=== PATIENT | male | born 1940 | race Caucasian/White ===

== ENCOUNTER 2017-02-28 06:51 | Day surgery (SDC) | payer MEDICARE, BC ==
[2017-02-23 23:09] VITALS: BMI 24.3
[~2017-02-28 06:51] MED LIST: LACTATED RINGERS 1,000 ML IV SCH; LIDOCAINE 1% 20 ML VIAL (10MG/ML) FOR IV START INTRADERMA PRN
[2017-02-28 07:07] VITALS: RESP 16; TEMP 98
[2017-02-28 07:19] LABS: Glucose,Whole Blood 172 mg/dL (75-99)
[2017-02-28] MEDS ORDERED: PROPOFOL 10 MG/ML 20 ML VIAL IV ONE (07:57)
--- NOTE | 2017-02-28 08:19 | P.OP ---
Date of Procedure: 02/28/17 Preoperative Diagnosis: Screening colonoscopy Postoperative Diagnosis: Diverticulosis Sigmoid colon polyp Procedure(s) Performed: Colonoscopy Anesthesia: MAC Surgeon: Dada Mcgowan Pathology: other (Sigmoid colon polyp) Condition: stable Disposition: PACU Description of Procedure: The patient's placed on the endoscopy table in the lateral position. He received IV sedation. Digital rectal exam was performed which revealed no abnormalities. The prostate was symmetrical without nodules. The flexible colonoscope was then placed patient anus passed throughout the entire colon. The ileocecal valve was visualized. The cecum, ascending and transverse colon appeared normal. The descending and sigmoid colon there was moderate diverticular changes. In the sigmoid colon there is there was a polyp seen in this is removed with the cold forcep. Scope was then withdrawn remainder the rectum appeared normal. Scope was withdrawn for patient.
--- NOTE | 2017-02-28 08:20 | P.GSHP ---
History of Present Illness H&P Date: 02/28/17 Chief Complaint: Screening colonoscopy This is a 76-year-old male referred from Dr. Arvizu. Patient resents today for screening colonoscopy. His last colonoscopy was over 5 years ago. Patient history of colon polyps. Past Medical History Past Medical History: Diabetes Mellitus, Hyperlipidemia, Hypertension Additional Past Medical History / Comment(s): hx. colon polyps History of Any Multi-Drug Resistant Organisms: None Reported Past Surgical History: Adenoidectomy, Tonsillectomy Additional Past Surgical History / Comment(s): colonoscopies, eye surg. as child Past Anesthesia/Blood Transfusion Reactions: No Reported Reaction Smoking Status: Former smoker - Past Family History Mother Family Medical History: Cancer Brother(s) Family Medical History: Deep Vein Thrombosis (DVT), Pulmonary Embolus Medications and Allergies Home Medications Medication Instructions Recorded Confirmed Type Aspirin [Adult Low Dose Aspirin EC] 81 mg PO DAILY 12/17/15 02/28/17 History Fish Oil/Dha/Epa [Fish Oil 1,200 1 each PO DAILY 12/17/15 02/28/17 History mg Fish Oil] Hydrochlorothiazide 12.5 mg PO DAILY 12/17/15 02/28/17 History Losartan [Cozaar] 50 mg PO DAILY 12/17/15 02/28/17 History Multivitamin [Men's Multi-Vitamin] 1 tab PO DAILY 12/17/15 02/28/17 History Atorvastatin [Lipitor] 10 mg PO HS 02/23/17 02/28/17 History Black Echevarria 1 tab PO DAILY 02/23/17 History metFORMIN HCL [Glucophage] 500 mg PO BID 02/23/17 02/28/17 History Allergies Allergy/AdvReac Type Severity Reaction Status Date / Time No Known Allergies Allergy Verified 02/22/17 16:02 Surgical - Exam Vital Signs Temp Pulse Resp BP Pulse Ox 98.0 F 98 16 161/77 96 02/28/17 07:03 02/28/17 07:03 02/28/17 07:03 02/28/17 07:03 02/28/17 07:03 - General well developed, no distress - Eyes PERRL - ENT normal pinna - Neck no masses - Respiratory normal expansion - Cardiovascular Rhythm: regular - Abdomen Abdomen: soft, non tender Results - Labs Abnormal Lab Results - Last 24 Hours (Table) 02/28/17 Range/Units 07:13 POC Glucose (mg/dL) 172 H (75-99) mg/dL Assessment and Plan Assessment: We'll perform screening colonoscopy.
[2017-02-28 08:42] VITALS: BP 149/65; PULSE 80
== END 2017-02-28 09:00 | disposition home or self-care (01) ==
LOC: ORWHC2ENDO 06:51 → EDSTATUS 09:00
PROVIDERS: ATTEND Surgery
DX: Z12.11 Encounter for screening for malignant neoplasm of colon (principal); K63.5 Polyp of colon; K57.30 Diverticulosis of large intestine without perforation or abscess without bleeding; I10 Essential (primary) hypertension; E78.5 Hyperlipidemia, unspecified; E11.9 Type 2 diabetes mellitus without complications; Z86.010 Personal history of colon polyps; Z79.84 Long term (current) use of oral hypoglycemic drugs; Z79.82 Long term (current) use of aspirin; Z79.899 Other long term (current) drug therapy; Z87.891 Personal history of nicotine dependence
CPT/HCPCS: 45380; 88305; J2704

== ENCOUNTER 2020-10-24 05:41 | Inpatient (IN) | payer MEDICARE, BC ==
[2020-10-22 08:41] VITALS: BMI 24.3
[2020-10-24] MEDS ORDERED: ALPRAZolam 0.5 MG TAB PO PRN (06:03)
[2020-10-24] MEDS ORDERED: ALPRAZolam 0.25 MG TAB PO PRN (06:03)
[2020-10-24] MEDS ORDERED: ZOLPIDEM 5 MG TAB PO PRN (06:03)
[2020-10-24] MEDS ORDERED: ceFAZolin 1 GM in SODIUM CHLORIDE 0.9% 250 ML IRRIGATION PRN (06:03)
[2020-10-24] MEDS ORDERED: SODIUM CHLORIDE 0.9% 1,000 ML in EMPTY BAG 1 BAG IV ONE (06:03)
[2020-10-24 06:40] LABS: Glucose,Whole Blood 150 mg/dL (75-99)
[2020-10-24] MEDS ORDERED: LIDOCAINE 1% INJ 10MG/ML (20 ML MDV) ONE ×4 (07:04→07:49)
[2020-10-24] MEDS ORDERED: METOPROLOL TARTRATE 12.5 MG TAB PO STA (07:25)
[2020-10-24] MEDS ORDERED: ROCURONIUM 10 MG/ML (5 ML VIAL) IV ONE (07:49)
[2020-10-24] MEDS ORDERED: HYDROmorphone (PF) 1 MG/ML ONE (07:49)
[2020-10-24] MEDS ORDERED: SUCCINYLCHOLINE CHLORIDE 100 MG/5 ML SYR IV ONE (07:49)
[2020-10-24] MEDS ORDERED: ePHEDrine SULFATE/0.9% NACL/PF 50 MG/5 ML SYRINGE IV ONE (07:49)
[2020-10-24] MEDS ORDERED: SODIUM CHLORIDE 0.9% 100 ML BAG ONE (07:49)
[2020-10-24] MEDS ORDERED: fentaNYL (PF) 50 MCG/ML 2 ML AMP ONE (07:49)
[2020-10-24] MEDS ORDERED: ceFAZolin 1,000 MG VIAL ONE (07:49)
[2020-10-24] MEDS ORDERED: HEPARIN SODIUM,PORCINE 10,000 UNIT/ML 1 ML VIAL ONE (07:49)
[2020-10-24] MEDS ORDERED: MIDAZOLAM 2 MG/2 ML VIAL ONE (07:49)
[2020-10-24] MEDS ORDERED: PROPOFOL 10 MG/ML 20 ML VIAL IV ONE (07:49)
[2020-10-24] MEDS ORDERED: IOPAMIDOL-250 100ML BTL INTRAARTER ONE ×2 (10:09→10:10)
[2020-10-24] MEDS ORDERED: HYDROcodone/APAP 5-325MG 1 EACH TAB PO PRN (10:21)
--- NOTE | 2020-10-24 10:32 | P.OP ---
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 Percutaneous Endovascular aortic repair with [place] device. 2. Ultrasound-guided bilateral common femoral artery access Surgeon: Oneil MARTE Anesthesia: General Estimated blood loss: 35 mL Complications: None Condition: Stable Disposition: Palpable DP and PT pulses bilaterally Indications: 80-year-old gentleman presented to the office secondary to large 7.8 cm infrarenal AAA just above the bifurcation seen on computed tomography scan. He presents today for endovascular aortic repair after medical and cardiac clearance. Operative narrative: After written and informed consent was obtained from the patient all risks benefits and complications were described the patient was brought to the [facility] [employer] [facility] and laid in a supine position. The area of the groins were prepped and draped in usual sterile fashion after appropriate anesthetic was performed per the anesthesiologist. A timeout was performed in normal fashion and antibiotics were administered prior to incisions. Utilizing ultras ound bilateral common femoral arteries were visualized demonstrating patency with minimal calcification. Under ultrasound guidance utilizing a multipurpose needle bilateral common femoral arteries were accessed and guidewire was placed followed by deployment of 2 Perclose closure devices for each femoral artery. Utilizing Seldinger technique and 8-Barbadian sheath was then placed and patient was administered heparin and followed with ACTs. 035 Glidewire was then placed up the right femoral sheath and exchanged for a Lunderquist wire through an angled glide catheter. The left femoral artery was then utilized and guidewire was placed followed by pigtail catheter and aortogram was obtained. Utilizing the Lunderquist wire a 23 mm main body device was then loaded over the guidewire after the 8-Barbadian sheath was removed. Delivery system was then placed 1 cm proximal to the intended landing site and the aortic body was oriented for appropriate access for the contralateral limb. Delivery system was then retracted out of the sheath and the aortic body radiopaque markers were verified to be in the correct position. First segment of the graft was then deployed in normal fashion by releasing and pulling the knob in normal fashion. Balloon injection port was then inflated utilizing a 4-1 saline contrast mixture in order to open the mid crown. Balloon was then deflated. Precise positioning was then performed with utilizing the radiopaque markers and parallax was removed and our to land at the renal arteries. Pigtail catheter was then retracted away from the proximal stent and the proximal stent was released in normal fashion. Polymer was then utilized and filled through the polymer port which was visualized under fluoroscopy. The stiff Lunderquist wire was then retracted within the ipsilateral limb. Attention was then placed to accessing the contralateral limb. Utilizing the Glidewire and angled glide catheter the contralateral limb was accessed and pigtail catheter was placed. Pigtail catheter was then spun to verify intragraft cannulation. A stiff wire was then placed within the pigtail catheter and retrograde angiogram was obtained demonstrating the internal iliac artery takeoff. Measurements were obtained and a 16 x 140 mm Ovation limb was chosen to be deployed and deployed in normal fashion. Once completed the aortic main body was completely deployed in normal fashion. Utilizing the balloon balloon angioplasty was performed at the ring to further mold the polymer to the aortic neck. Once completed the aortic body deployment sheath was removed in normal fashion. Pigtail catheter was then placed over the Lunderquist wire and retrograde angiogram was obtained with measurements to the internal iliac artery on the ipsilateral limb. A 16 x 120 mm Ovation limb was chosen and deployed in normal fashion. Once completed two 12 x 40mm balloons were placed up each iliac limb and balloon angioplasty was performed through its entirety. Once completed balloons were removed and pigtail catheter was placed above the graft and angiogram was obtained demonstrating exclusion of the aneurysm with type IB endoleak coming from the left iliac limb. A 16 x 100 mm ovation IX extension limb was then placed in normal fashion after retrograde angiogram for measurements. There was also a small type IB endoleak from the right iliac limb after multiple views and retrograde angiograms as well as aortograms were obtained and therefore a 16 x 100 mm ovation Ix limb was placed in normal fashion. Final angiogram was then obtained via pigtail and no evidence of endoleak's were visualized at this time. All guidewires and catheters were then removed and the Perclose closure devices were closed in normal fashion. The areas were then cleansed and dressings were placed. The patient tolerated procedure well and had palpable DP and PT pulses and was sent to PACU for recovery.
[2020-10-24] MEDS: SODIUM CHLORIDE 0.9% 1,000 ML IV SCH ×2 (10:49→23:00)
[2020-10-24 11:46] LABS: Basophils % (A) 0 %; Eosinophils # (A) 0.3 k/uL (0-0.7); Eosinophils % (A) 4 %; HCT 31.7 % (39.0-53.0); HGB 11.3 gm/dL (13.0-17.5); Lymphocytes % (A) 16 %; MCH 34.1 pg (25.0-35.0); MCHC 35.7 g/dL (31.0-37.0); MCV 95.3 fL (80.0-100.0); Monocytes # (A) 0.4 k/uL (0-1.0); Monocytes % (A) 6 %; Neutrophils # (A) 4.6 k/uL (1.3-7.7); Neutrophils % (A) 71 %; Platelet Count 262 k/uL (150-450); RBC 3.32 m/uL (4.30-5.90); RDW 13.6 % (11.5-15.5); WBC 6.4 k/uL (3.8-10.6)
[2020-10-24 13:05] LABS: Potassium 3.9 mmol/L (3.5-5.1)
[2020-10-24 13:17] LABS: Calcium 8.4 mg/dL (8.4-10.2)
--- NOTE | 2020-10-24 15:04 | IR ---
EXAMINATION TYPE: IR vessel captain aorta DATE OF EXAM: 10/24/2020 COMPARISON: NONE HISTORY: Aortic aneurysm Fluoroscopy support supplied to the referring clinician. See dictated report from *your surgery, 30. 9 minutes fluoroscopy time, 568 intraoperative images
[2020-10-24 17:10] LABS: Glucose,Whole Blood 189 mg/dL (75-99)
[2020-10-24] MEDS: INSULIN ASPART (NovoLOG) 100 UNIT/ML VIAL SQ SCH ×2 (18:19→20:15)
[2020-10-24 20:07] LABS: Glucose,Whole Blood 240 mg/dL (75-99)
[2020-10-24] MEDS: METOPROLOL TARTRATE 12.5 MG TAB PO SCH ×2 (20:14→20:20)
[2020-10-24] MEDS ORDERED: ATORVASTATIN 20 MG TAB PO SCH (21:00)
[2020-10-24] MEDS ORDERED: ASPIRIN 81 MG PO SCH (21:00)
[2020-10-25 05:25] LABS: HCT 28.5 % (39.0-53.0); HGB 10.8 gm/dL (13.0-17.5); MCHC 37.8 g/dL (31.0-37.0); MCV 95.2 fL (80.0-100.0); Mean Platelet Volume 7.8; Platelet Count 232 k/uL (150-450); RBC 2.99 m/uL (4.30-5.90); RDW 13.7 % (11.5-15.5); WBC 11.8 k/uL (3.8-10.6)
[2020-10-25 05:47] LABS: Calcium 8.6 mg/dL (8.4-10.2); Potassium 3.9 mmol/L (3.5-5.1)
[2020-10-25] MEDS: INSULIN ASPART (NovoLOG) 100 UNIT/ML VIAL SQ SCH ×2 (06:36→12:26)
[2020-10-25] MEDS ORDERED: POTASSIUM CHLORIDE ER 20 MEQ TAB.ER PO SCH (08:00)
[2020-10-25] MEDS ORDERED: hydroCHLOROthiazide 12.5 MG CAP PO SCH (09:00)
[2020-10-25] MEDS ORDERED: LOSARTAN 50 MG TAB PO SCH (09:00)
[2020-10-25] MEDS ORDERED: ASPIRIN 81 MG PO SCH (09:00)
[2020-10-25] MEDS: METOPROLOL TARTRATE 12.5 MG TAB PO SCH (10:01)
--- NOTE | 2020-10-25 11:25 | PN ---
PROGRESS NOTE Mr. Apodaca is an 80 -year-old gentleman who has infrarenal abdominal aortic aneurysm. The patient had an aortic stent graft placed by Dr. Anjel Riggs. Today is postop day 1. The patient was seen in the intensive care unit. His vital signs stable. Chest: Clear. Abdomen: Soft. Femorals are palpable bilaterally. Both feet are warm. The patient has a left radial arterial line. The patient has not voided yet. PLAN: The patient may be needing a straight James catheter and when patient is stable, DC the arterial line. The patient can go home. I will follow up in my office next Tuesday. MMODL / IJN: [id number] /
[2020-10-25 11:27] LABS: Glucose,Whole Blood 149 mg/dL (75-99)
[2020-10-25] MEDS: SODIUM CHLORIDE 0.9% 1,000 ML IV SCH (11:58)
[2020-10-25 12:31] VITALS: TEMP 98.1
[2020-10-25 13:44] VITALS: BP 152/70; PULSE 68; RESP 18
== END 2020-10-25 14:17 | disposition home or self-care (01) | DRG 269 ==
LOC: 2ORMAIN 05:41 → 2SICU 10:51
PROVIDERS: ADMIT Surgery; ATTEND Surgery
PROC: 04V03DZ Restriction of Abdominal Aorta with Intraluminal Device, Percutaneous Approach (ICD-10-PCS; principal; 2020-10-24 07:30)
DX: I71.4 Abdominal aortic aneurysm, without rupture (principal)
CPT/HCPCS: 34705; 80048; 85025; 85027; 86850; 86900; 86901

== ENCOUNTER 2022-02-04 06:40 | Day surgery (SDC) | payer MEDICARE, BC ==
[2022-02-02 11:14] VITALS: BMI 24.3
[~2022-02-04 06:40] MED LIST changes: -LIDOCAINE 1% 20 ML VIAL (10MG/ML) FOR IV START INTRADERMA PRN
[2022-02-04 07:04] VITALS: TEMP 98.5
[2022-02-04 07:11] LABS: Glucose,Whole Blood 147 mg/dL (70-110)
[2022-02-04] MEDS ORDERED: PROPOFOL 10 MG/ML 20 ML VIAL IV ONE (07:46)
[2022-02-04] MEDS ORDERED: LIDOCAINE 2% INJ 20 MG/ML (2 ML VIAL) ONE (07:46)
--- NOTE | 2022-02-04 08:04 | P.GSHP ---
History of Present Illness H&P Date: 02/04/22 Chief Complaint: History of colon polyps Is a 81-year-old male. History: Polyps. Patient presents today for colonoscopy. 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 PARTIAL LEFT HIP REPLACEMENT. COLONOSCOPIES Past Anesthesia/Blood Transfusion Reactions: No Reported Reaction Smoking Status: Former smoker - Past Family History Mother Family Medical History: Cancer Additional Family Medical History / Comment(s): colon cancer Brother(s) Family Medical History: Deep Vein Thrombosis (DVT), Pulmonary Embolus Medications and Allergies Home Medications Medication Instructions Recorded Confirmed Type Aspirin [Adult Low Dose Aspirin EC] 81 mg PO HS 12/17/15 02/04/22 History Fish Oil/Dha/Epa [Fish Oil 1,200 1 each PO DAILY 12/17/15 02/04/22 History mg Fish Oil] Losartan [Cozaar] 50 mg PO DAILY 12/17/15 02/04/22 History Multivitamin [Men's Multi-Vitamin] 1 tab PO DAILY 12/17/15 02/04/22 History Black Echevarria 2 tab PO DAILY 02/23/17 02/04/22 History Atorvastatin [Lipitor] 20 mg PO DAILY 02/02/22 02/04/22 History Turmeric Root Extract [Turmeric 500 mg PO DAILY 02/02/22 02/04/22 History Curcumin] glipiZIDE XL [Glucotrol XL] 2.5 mg PO DAILY 02/02/22 02/04/22 History Allergies Allergy/AdvReac Type Severity Reaction Status Date / Time No Known Allergies Allergy Verified 02/04/22 06:53 Surgical - Exam Vital Signs Temp Pulse Resp BP Pulse Ox 98.5 F 88 17 165/71 97 02/04/22 07:03 02/04/22 07:03 02/04/22 07:03 02/04/22 07:03 02/04/22 07:03 - General well developed, well nourished, no distress - Eyes PERRL - ENT normal pinna - Neck no masses - Respiratory normal expansion - Cardiovascular Rhythm: regular - Abdomen Abdomen: soft, non tender Results - Labs Abnormal Lab Results - Last 24 Hours (Table) 02/04/22 Range/Units 07:09 POC Glucose (mg/dL) 147 H (70-110) mg/dL Assessment and Plan Assessment: History of colon polyps. We'll perform colonoscopy.
--- NOTE | 2022-02-04 08:06 | P.OP ---
Date of Procedure: 02/04/22 Preoperative Diagnosis: History of colon polyps Postoperative Diagnosis: Left colon polyp Diverticulosis Internal hemorrhoids Procedure(s) Performed: Colonoscopy Anesthesia: MAC Surgeon: Dada Mcgowan Pathology: other (Left colon polyp) Condition: stable Disposition: PACU Description of Procedure: Patient's placed on the endoscopy table in the lateral position. He received IV sedation. Digital rectal exam performed. This revealed some mild internal hemorrhoids. Prostate was symmetric without nodules. The flexible colonoscope was then placed patient anus passed throughout the entire colon. The ileocecal valve was obscured with some liquid stool. The cecum had a limited view due to the poor prep. The visualized ascending colon appeared normal. In the transverse colon a few scattered diverticula. In the left colon there was significant diverticular changes. In the left colon a polyp was seen was removed with the cold forcep. Scope was then withdrawn. The sigmoid colon had extensive diverticular changes. Scope was then brought back the rectum and this appeared normal. Scope withdrawn for patient.
[2022-02-04 08:25] VITALS: BP 158/90; PULSE 76; RESP 16
== END 2022-02-04 09:00 | disposition home or self-care (01) ==
LOC: ORWHC2ENDO 06:40
PROVIDERS: ATTEND Surgery
DX: Z12.11 Encounter for screening for malignant neoplasm of colon (principal); K63.5 Polyp of colon; K64.8 Other hemorrhoids; K57.30 Diverticulosis of large intestine without perforation or abscess without bleeding; I10 Essential (primary) hypertension; E11.9 Type 2 diabetes mellitus without complications; E78.5 Hyperlipidemia, unspecified; M19.90 Unspecified osteoarthritis, unspecified site; Z86.79 Personal history of other diseases of the circulatory system; Z98.890 Other specified postprocedural states; Z96.642 Presence of left artificial hip joint; Z87.891 Personal history of nicotine dependence; Z80.0 Family history of malignant neoplasm of digestive organs; Z83.2 Family history of diseases of the blood and blood-forming organs and certain disorders involving the immune mechanism; Z79.82 Long term (current) use of aspirin; Z79.01 Long term (current) use of anticoagulants; Z79.02 Long term (current) use of antithrombotics/antiplatelets; Z79.84 Long term (current) use of oral hypoglycemic drugs; Z79.899 Other long term (current) drug therapy
CPT/HCPCS: 88305; 45380; J2704; J2001

== ENCOUNTER → 2023-03-30 | Outpatient (CLI) | payer MEDICARE, BC | END | disposition home or self-care (01) | LOC: LABWHC1 09:06 | PROVIDERS: ATTEND Family Medicine | DX: M62.84 Sarcopenia (principal); E11.9 Type 2 diabetes mellitus without complications; R26.9 Unspecified abnormalities of gait and mobility | CPT/HCPCS: 36415; 82607; 82746; 83036 ==